=== PATIENT | male | born 1970 | race Caucasian/White ===

== ENCOUNTER 2018-07-31 00:59 | Emergency (ER) | payer BC ==
[2018-07-31] MEDS ORDERED: Lidocaine 1% (PF) 30 ML VIAL ONE (01:35)
[2018-07-31] MEDS ORDERED: Ketorolac Tromethamine 30 MG/ML VIAL ONE (02:28)
[2018-07-31] MEDS ORDERED: Adacel (T-DAP) 0.5 ML SYRINGE ONE (02:31)
== END 2018-07-31 02:48 | disposition home or self-care (01) ==
LOC: ERS 00:59
DX: S06.0X0A Concussion without loss of consciousness, initial encounter (principal); S01.111A Laceration without foreign body of right eyelid and periocular area, initial encounter; E11.9 Type 2 diabetes mellitus without complications; Z79.4 Long term (current) use of insulin; E78.5 Hyperlipidemia, unspecified; F41.9 Anxiety disorder, unspecified; Z79.82 Long term (current) use of aspirin; Z79.899 Other long term (current) drug therapy; Y04.0XXA Assault by unarmed brawl or fight, initial encounter
CPT/HCPCS: 12011; 90715; J1885; J2001